=== PATIENT | female | born 1960 | race Asian ===

== ENCOUNTER 2022-06-13 13:42 | Emergency (ER) | payer MEDICAID ==
[~2022-06-13] VITALS: Ht 162.6 cm; Wt 63.6 kg
[2022-06-13] MEDS ORDERED: AMLO-257 PO (13:58)
[2022-06-13] MEDS ORDERED: ATEN-72 PO (13:58)
[2022-06-13] MEDS ORDERED: SITA50 PO (13:58)
[2022-06-13] MEDS ORDERED: METF-1211 PO (13:58)
[2022-06-13] MEDS ORDERED: DICLOFENAC SODIUM 1% 100 GM GEL [4GM] TP ONE (15:15)
[2022-06-13] MEDS ORDERED: ACETAMINOPHEN 500 MG TABLET PO ONE (16:00)
[2022-06-13 16:40] VITALS: BP 118/51
== END 2022-06-13 18:48 | disposition home or self-care (01) ==
LOC: EMS 13:48
DX: M25.561 Pain in right knee (principal); E11.9 Type 2 diabetes mellitus without complications; F17.210 Nicotine dependence, cigarettes, uncomplicated
CPT/HCPCS: 82962; 99283